=== PATIENT | female | born 1990 | race Caucasian/White ===

== ENCOUNTER 2022-08-13 04:58 | Inpatient (IN) | payer OTHER, SELFPAY ==
[2022-08-13] VITALS (190 sets, daily range): BP systolic 89–152; BP diastolic 38–91; PULSE 63–165; RESP 16–18; TEMP 36.6–37.7; O2SAT 87–100; BMI 33.3
--- NOTE | 2022-08-13 05:33 | LDADM ---
This patient, Yvonne Rock, was admitted to Labor/Delivery/Recovery 105 on 08/13/22 at 04:58. Plans for labor, pain management and were discussed with patient. Patient/family oriented to hospital policies and general routines including ID bracelet, bed and alarms, visiting hours, pain management, procedures, bathroom and other care routines, personal items, smoking policy, room service/diet and guest tray routines, infant security routines, and visiting hours. Patient/Family are encouraged to report perceived risks to care and to ask questions if they do not understand what they are told or what they should do. See OBIX for further documentation.
[2022-08-13 05:53] LABS: Basophils Percent Auto 0.4 % (0.2-1.2); Eosinophils Absolute Auto 0.1 K/mm3 (0-0.3); Hematocrit 32.3 % (37.0-47.0); Hemoglobin 10.7 g/dL (12.0-15.0); Immature Granulocyte Absolute 0.06 K/mm3 (0.00-0.031); Immature Granulocyte Percent A 0.6 % (0-0.5); Lymphocytes Absolute Auto 1.66 K/mm3 (0.9-3.2); Lymphocytes Percent Auto 15.4 % (18.3-44.2); Mean Corpuscular HGB Conc 33.1 g/dl (32-36); Mean Corpuscular Hemoglobin 29.5 pg (26-34); Mean Platelet Volume 11.3 fl (7.4-10.4); Monocytes Absolute Auto 0.5 K/mm3 (0.1-0.6); Monocytes Percent Auto 4.9 % (2.6-8.5); Neutrophils Absolute Auto 8.4 K/mm3 (1.3-6.7); Neutrophils Percent Auto 77.7 % (45.5-73.1); Platelet Count Result 211 k/mm3 (150-375); Red Blood Count 3.63 M/mm3 (4.2-5.4); Red Cell Distribution Width 14.6 % (11.5-14.5); White Blood Count 10.8 K/mm3 (4.5-10.0)
[2022-08-13] MEDS: LACTATED RINGERS 1,000 ML 125 ML IV CONT ×2 (05:55→10:12)
--- NOTE | 2022-08-13 05:56 | PM.IMHP ---
H&P: HPI History of Present Illness Date/Time: 08/13/22 05:56 Chief Complaint: Patient admitted for induction of labor at term Narrative: this is a 32-year-old whose last menstrual period is unknown, EDC is 08/14/2022, confirmed by 10 week ultrasound who presents at 40 weeks gestation for induction of labor. Her has been uncomplicated that she is negative for group B strep. Cervix is favorable risks and benefits reviewed [facility] Family History Family History Grandparent Diabetes mellitus Social History Social History Smoking status: Never smoker Substance use: never Lack of Transportation: No Lack of Food: Never True Current Housing: I Have Housing Concerned About Future Housing: No Difficulty Paying Gas/Electric Bills: No Difficulty Paying for Meds: No Currently Unemployed: No Education: Bachelor's Degree Difficulty w/ Childcare or Family Care: No Spiritual care concerns: No Meds Home Medications and Allergies Home Medications Medication Instructions Recorded Confirmed Type ferrous sulfate 325 mg (65 mg 325 mg PO DAILY 07/24/22 08/13/22 History iron) tablet prenat.vits,alexus,zeb-lcvb-ffmej 1 tablet PO HS 07/24/22 08/13/22 History Allergies Allergy/AdvReac Type Severity Reaction Status Date / Time citalopram [From Celexa] Allergy Hives Verified 08/13/22 05:30 bupropion [From Wellbutrin] AdvReac Dizziness Verified 08/13/22 05:30 Vital Signs Vital Signs - 24 hr 08/13/22 05:32 Oxygen Delivery Room Air Exam Const: General: cooperative, healthy appearing and comfortable Nutritional Appearance: average body habitus Orientation/consciousness: oriented to person, oriented to place and oriented to time HENMT: Head: normal to inspection Resp: Effort & Inspection: normal respiratory effort Cardio: Rate: regular rate Rhythm: regular rhythm Heart sounds: S1 normal heart sound present and S2 normal heart sound present GI: Inspection: normal to inspection ( gravid soft uterus) : External Female Exam: normal external appearance Speculum Exam - Vagina: normal appearance of the vagina Speculum Exam - Cervix: normal appearance of the cervix ( cervix 3/70/2. AROM clear. FHTs reassuring) H&P: Results Labs Labs: Short CBC 08/13/22 Range/Units 05:38 WBC 10.8 H (4.5-10.0) K/mm3 Hgb 10.7 L (12.0-15.0) g/dL Hct 32.3 L (37.0-47.0) % Plt Count 211 (150-375) k/mm3 Assessment and Plan Assessment and plan (1) Term : Code(s): Z34.90 - Encounter for supervision of normal , unspecified, unspecified trimester Status: Acute Plan medical induction of labor. Spontaneous vaginal delivery is expected. She has an epidural candidate
[2022-08-13] MEDS: OXYTOCIN 30 UNITS/NS 500 ML 30 UNITS/500 ML BAG IV CONT (05:58)
--- NOTE | 2022-08-13 09:52 | WPDANESEPPF ---
Anes - Initial Pre Proc Eval Date/Time: 08/13/22 09:52 Surgeon: Román Veliz MD Pre Op Diagnosis: IOL Patient Data Age: 32 Gender: F Height: 1.65 m Weight: 91 kg Last Vital Signs Temp 36.9 C 08/13/22 08:30 Pulse 72 08/13/22 09:46 Resp 16 08/13/22 06:00 BP 135/82 08/13/22 09:46 O2 Del Method Room Air 08/13/22 05:32 Allergies Allergy/AdvReac Type Severity Reaction Status Date / Time citalopram [From Celexa] Allergy Hives Verified 08/13/22 05:30 bupropion [From Wellbutrin] AdvReac Dizziness Verified 08/13/22 05:30 Home Medications Medication Instructions Recorded Confirmed Type ferrous sulfate 325 mg (65 mg 325 mg PO DAILY 07/24/22 08/13/22 History iron) tablet prenat.vits,alexus,kds-ayla-fhfuu 1 tablet PO HS 07/24/22 08/13/22 History Laboratory Tests 08/13/22 05:38 WBC 10.8 H K/mm3 (4.5-10.0) RBC 3.63 L M/mm3 (4.2-5.4) Hgb 10.7 L g/dL (12.0-15.0) Hct 32.3 L % (37.0-47.0) MCV 89.0 fl (80-100) MCH 29.5 pg (26-34) MCHC 33.1 g/dl (32-36) RDW 14.6 H % (11.5-14.5) Plt Count 211 k/mm3 (150-375) MPV 11.3 H fl (7.4-10.4) Immature Gran % (Auto) 0.6 H % (0-0.5) Neut % (Auto) 77.7 H % (45.5-73.1) Lymph % (Auto) 15.4 L % (18.3-44.2) Mercer % (Auto) 4.9 % (2.6-8.5) Eos % (Auto) 1.0 % (0-4.4) Baso % (Auto) 0.4 % (0.2-1.2) Lymph # (Auto) 1.66 K/mm3 (0.9-3.2) Mercer # (Auto) 0.5 K/mm3 (0.1-0.6) Eos # (Auto) 0.1 K/mm3 (0-0.3) Baso # (Auto) 0.0 K/mm3 (0.0-0.1) Abs Immat Gran (auto) 0.06 H K/mm3 (0.00-0.031) Absolute Neuts (auto) 8.4 H K/mm3 (1.3-6.7) Absolute Nucleated RBC 0.0 K/mm3 (0.0-0.012) Nucleated RBC % 0.0 % (0.0-0.2) RPR Pending Blood Type A Negative Antibody Screen Negative Patient hx anesthesia problems: none Family hx anesthesia problems: none Results Review: All pre-operative results and documents have been reviewed as part of the pre-operative evaluation. [facility] Family History Family History Grandparent Diabetes mellitus Social History Social History Smoking status: Never smoker Substance use: never Lack of Transportation: No Lack of Food: Never True Current Housing: I Have Housing Concerned About Future Housing: No Difficulty Paying Gas/Electric Bills: No Difficulty Paying for Meds: No Currently Unemployed: No Education: Bachelor's Degree Difficulty w/ Childcare or Family Care: No Spiritual care concerns: No Anes - Eval Final PreProcedure Day of Procedure 08/13/22 09:52 Patient weight: overweight Heart: regular rate and rhythm Lungs: clear to auscultation and normal air movement Airway: Mallampati scale class II Neurological: alert and oriented Last oral intake: >/= 8 hours ASA classification: II Emergent: no Anesthetic plan: proceed Anesthesia type and monitoring: regional epidural Results Review: All pre-operative results and documents have been reviewed as part of the pre-operative evaluation. Informed Consent: The patient's anesthetic plan and its attendant risks and benefits were discussed with the patient/family/POA. Questions were solicited and answers provided to the satisfaction of the patient/family/POA.
[2022-08-13 10:30] LABS: Rapid Plasma Reagin Non-Reactive (NonReactive)
--- NOTE | 2022-08-13 14:49 | PC.NURSE ---
Spoke with MD on phone, updated that pitocin drip was turned from 10 mu/min to 6 mu/min due to tachysystole. MD agrees with plan of care.
--- NOTE | 2022-08-13 17:52 | P.PCNOB_ITS ---
OB - Delivery Note Procedure Delivery date: 08/13/22 Procedure: mil Events: Elective Induction of Labor Induction method: AROM Delivery augmentation: Pitocin Delivery monitor: External FHT and Internal Uterine Route of delivery: Episiotomy description: None Laceration Description: None Specimen: No Quantitative Blood Loss (ml): 60 Anesthesia type: Epidural Disposition: Floor [place] Baby Date of : 08/13/22 Time of : 17:45 Weeks of gestation at delivery: 39 Infant gender: Female presentation: vertex position: Right Occiput Anterior Placenta delivery description: Spontaneous Cord Vessel Description: 3 Vessels and Delayed Cord Clamping score one minute: 9 score five minutes: 9
[2022-08-13] MEDS: OXYTOCIN 30 UNITS/NS 500 ML 30 UNITS/500 ML BAG 125 UNITS IV CONT (18:06)
[2022-08-13] MEDS: WITCH HAZEL 40 PADS 1 PAD TOPICAL (19:14)
[2022-08-13] MEDS: IBUPROFEN 600 MG TABLET PO (19:15)
[2022-08-13] MEDS: BENZOCAINE 20% AER SPR (*SP) 56 GM CAN 1 SPRAY TOPICAL (19:15)
[2022-08-14 04:12] VITALS: BP 117/64; PULSE 81; RESP 18; TEMP 36.8; O2SAT 100
[2022-08-14 04:38] LABS: Hematocrit 29.4 % (37.0-47.0); Hemoglobin 9.6 g/dL (12.0-15.0)
--- NOTE | 2022-08-14 07:04 | WPDANLDPN2 ---
Anes-Prog Note L&D Date/Time: 08/14/22 07:04 Comfortable throughout: labor and delivery Neuraxial method: epidural Epidural/Spinal procedure site: clean & non-tender Neuro status: Neuro function grossly intact. Cardiovascular status: normal Respiratory status: normal Airway patency: baseline Mental status: baseline Post-Op hydration status: normal Vital Signs: Last Vital Signs Temp 36.8 C 08/14/22 04:12 Pulse 81 08/14/22 04:12 Resp 18 08/14/22 04:12 BP 117/64 08/14/22 04:12 Pulse Ox 100 08/14/22 04:12 O2 Del Method Room Air 08/13/22 23:20 Pain score (VAS): 2 I/O: Intake & Output 08/13/22 08/13/22 08/14/22 15:59 23:59 07:59 Intake Total 1000 Output Total 60 Balance 1000 -60 Patient feedback: Patient satisfied with anesthetic care.
[2022-08-14 08:00] VITALS: BP 122/75; PULSE 73; RESP 16; TEMP 36.7; O2SAT 99
[2022-08-14] MEDS: DOCUSATE SODIUM 100 MG CAPSULE PO ×2 (08:04→16:03)
[2022-08-14] MEDS: POLYSACCHARIDE IRON COMPLEX 150 MG CAPSULE PO ×2 (08:04→16:03)
--- NOTE | 2022-08-14 11:41 | PM.OBPNVD ---
OB - PN: Subj Subjective Date/time seen: 08/14/22 11:41 Narrative: Pain OK. OB - PN: Obj Data Labs 08/14/22 04:05 Labs: Laboratory Results - last 24 hr 08/14/22 04:05 Hgb 9.6 L Hct 29.4 L OB - PN A/P Plan Comments: A: PPD#1, doing well. P: Routine care. Home tomorrow to f/u 6 weeks. Exam Psych: Other: AVSS ABD soft, nontender, fundus firm EXT nontender
--- NOTE | 2022-08-14 11:42 | PM.OBDSVD ---
DS: Admitting Diagnosis Discharge Date 08/15/22 Admitting Diagnosis IUP at 40 weeks DS: Discharge Diagnosis Discharge Diagnosis (1) (normal spontaneous vaginal delivery): Code(s): O80 - Encounter for full-term uncomplicated delivery Status: Acute OB - DS: Summary OB Procedures : None OB Procedures Intrapartum: Spontaneous Vag Delivery OB Procedures: : None Time Spent with Patient Time attestation: Total time spent providing and/or coordinating discharge services: DS: Data Data Completed and Pending Labs on day of discharge: Labs from last 24 hours 08/14/22 04:05 Hgb 9.6 L Hct 29.4 L Discharge Plan Discharge Attending physician on discharge: Román Wallace Discharging Clinician: Aneudy Carpenter Patient Disposition: Home, Self-Care Activity: pelvic rest Diet: regular Discharge Instructions: Education: Mom and Baby Guide Given to: Mother Follow-Up: Call your delivering provider's office for an appointment to be seen in: 6 Weeks Mom and baby should come to the [facility] for the follow-up appointment. Appointment Date/Time: August 17, 2022 at 10:00 am What to expect at your follow-up visit: Blood Pressure Check Physical Assessment Call [phone] if you are unable to keep your appointment time. BREAST CARE: * Wear a snug supportive bra. * For engorgement discomfort: Bottle Feeding: * May apply ice packs PERINEAL CARE: * Until bleeding stops, use your bianca bottle after urinating * Change your pad frequently throughout the day * You may take sitz baths several times a day (fill your bathtub with warm water and soak for 20 minutes.) Do NOT bathe in the water * No tub baths until seen by your physician - You may shower ACTIVITY: * Rest as much as possible. * Do not exercise or lift anything heavier than your baby (such as laundry or other children.) * Avoid stairs or driving as much as possible. * Do not put anything into the vagina. No douching, tampons, or sexual activity until seen by physician. NOTIFY PHYSICIAN IF YOU HAVE ANY QUESTIONS OR IF ANY OF THE FOLLOWING SYMPTOMS OCCUR: * If your vaginal bleeding becomes foul smelling. * If your vaginal bleeding becomes more heavy than a period or if your bleeding changes from pink to bright red. However, you may pass an occasional walnut-sized clot once or twice for the first week . * If you experience a sharp, shooting pain in your calves. * If you discover a hard, reddened area on your breast or if you experience flu-like symptoms. DIET: * Eat regular, well-balanced meals. * Drink plenty of fluids daily. Call or return if temperature above 100.4? F, increased abdominal pain, increased vaginal bleeding or any new problems. Stand Alone Forms: General Discharge Information Follow-up/Referrals: Román Wallace MD [Physician] - 6 Weeks Discharge Medications: New ibuprofen 600 mg tablet 600 mg PO Q6H PRN (Reason: cramps) Qty: 30 0RF Continued ferrous sulfate 325 mg (65 mg iron) Tablet 325 mg PO DAILY prenat.vits,alexus,htd-vojk-bgeji Tablet 1 tablet PO HS Date of admission: 08/13/22 04:58 Primary Care Provider: RobelSu Admitting Provider: Román Wallace Attending physician on admission: Román Wallace Condition: Stable
[2022-08-14 15:55] VITALS: BP 116/77; PULSE 87; RESP 16; TEMP 36.8; O2SAT 99
[2022-08-14 19:30] VITALS: BP 123/66; PULSE 78; RESP 16; TEMP 37.1; O2SAT 100
[2022-08-15] MEDS: POLYSACCHARIDE IRON COMPLEX 150 MG CAPSULE PO (07:37)
[2022-08-15] MEDS: IBUPROFEN 600 MG TABLET PO (07:37)
[2022-08-15] MEDS: DOCUSATE SODIUM 100 MG CAPSULE PO (07:37)
[2022-08-15 07:45] VITALS: BP 125/84; PULSE 84; RESP 16; TEMP 36.8; O2SAT 99
--- NOTE | 2022-08-15 08:00 | PC.NURSE ---
Patient viewed the discharge video Mother & Baby Care, The First Two Weeks . Patient was given the opportunity and encouraged to ask questions. Patient verbalized understanding of information shared and has been given the mother/baby guide for home reference.
--- NOTE | 2022-08-15 09:15 | PM.OBPNVD ---
OB - PN: Subj Subjective Date/time seen: 08/15/22 09:15 Narrative: Pain OK. Would like to go home. OB - PN: Obj Data Labs 08/14/22 04:05 OB - PN A/P Plan Comments: A: PPD#2, doing well. P: Home to f/u 6 weeks. Exam Psych: Other: AVSS ABD soft, nontender, fundus firm EXT nontender
[2022-08-17 10:24] VITALS: BP 130/77; PULSE 74; RESP 16; TEMP 36.8; O2SAT 100
== END 2022-08-15 10:45 | disposition home or self-care (01) | DRG 807 ==
LOC: ANHLDR 05:02 → ANHOB2 20:42
PROVIDERS: Admitting Provider Obstetrics & Gynecology; PCP Internal Medicine; Visit Provider Obstetrics & Gynecology
DX: O80 Encounter for full-term uncomplicated delivery (principal); Z37.0 Single live birth; Z3A.39 39 weeks gestation of pregnancy
CPT/HCPCS: 36415; 85014; 85018; 85025; 86592; 86850; 86900; 86901; A9270; J2590; J2795; J7120

== ENCOUNTER 2022-09-04 09:23 | Emergency (ER) | payer OTHER, SELFPAY ==
--- NOTE | ~2022-09-04 | CT_ITS ---
EXAMINATION: CT brain wo con DATE: 09/04/2022 10:17 INDICATION: Right-sided facial numbness. TECHNIQUE: Computed tomography (CT) of the head was performed without intravenous contrast. The mA wa s adjusted according to patient size. Iterative reconstruction technique was employed. The dose-lengt h product was 605.33 mGy-cm. COMPARISON: None FINDINGS: There is no intracranial hemorrhage, acute infarction, or abnormal intracranial mass lesion . The ventricles are normal in size. The paranasal sinuses are clear. The mastoid air cells are nino l. The orbits are normal. IMPRESSION: 1. Normal brain. Reviewed, dictated and finalized at location A. IMPRESSION: 1. Normal brain.
[2022-09-04 09:35] VITALS: BP 128/87; PULSE 86; RESP 18; O2SAT 99
[2022-09-04 09:40] VITALS: PULSE 80
--- NOTE | 2022-09-04 09:56 | ED.NEUROSD ---
HPI - Neuro Symptoms/Deficit General Chief Complaint: Neuro Symptoms/Deficit Stated Complaint: right sided facial paralysis Time Seen by Provider: 09/04/22 09:43 Source: patient Mode of arrival: ambulatory Limitations: no limitations History of Present Illness HPI Narrative: Patient is a 32-year-old female who presents to the ED with report of paralysis of her right-sided face. Patient reports she first noticed slight numbness and a difference in taste to the right side of her tongue last night. This morning she woke up with weakness in her right-sided face. She states she is unable to open her mouth as widely on that side, unable to close her R eye. She denies any other symptoms. Denies headache, dizziness, lightheadedness, vision changes, weakness of arm or leg, numbness elsewhere, slurred speech, syncope, nausea, vomiting, fevers, rash, pain, recent cough or cold sx's, ear pain. Patient is 3 weeks post normal vaginal delivery. No complications. Related Data Home Medications Medication Instructions Recorded Confirmed prenat.vits,alexus,vbl-bggd-jkxth 1 tablet PO HS 07/24/22 08/13/22 Allergies Allergy/AdvReac Type Severity Reaction Status Date / Time citalopram [From Celexa] Allergy Hives Verified 09/04/22 09:39 bupropion [From Wellbutrin] AdvReac Dizziness Verified 09/04/22 09:39 Review of Systems Review of Systems: CONSTITUTIONAL: Denies fever, chills, or sweats. EYES: See HPI. ENT: See HPI. CARDIOVASCULAR: Denies chest pain. RESPIRATORY: Denies dyspnea. GASTROINTESTINAL: Denies abdominal pain, nausea, vomiting. SKIN: Denies rash or itching. NEUROLOGIC: See HPI. All systems reviewed & are unremarkable except as noted in HPI and below PMFSH Past Medical History Medical History No pertinent past medical history Surgical History Surgical History No pertinent past surgical history Family History Family History Grandparent Diabetes mellitus Social History Social History Smoking status: Never smoker Substance use: never Lack of Transportation: No Lack of Food: Never True Current Housing: I Have Housing Concerned About Future Housing: No Difficulty Paying Gas/Electric Bills: No Difficulty Paying for Meds: No Currently Unemployed: No Education: Bachelor's Degree Difficulty w/ Childcare or Family Care: No Spiritual care concerns: No Exam Narrative: GENERAL: Well appearing, well-nourished, non-toxic, in no acute distress. HEAD: Normocephalic, atraumatic. EYES: PERRL/EOMI, conjunctivae clear bilaterally. No nystagmus. Unable to fully close R eyelid. NOSE: Normal, no drainage. No Sen sign. EARS: TMS clear, with good light reflex. No erythema or bulging. No vesicles noted in canal or TM. THROAT: Pharynx clear, no exudate. MMs moist. NECK: Supple. No adenopathy, no masses. No meningeal signs. RESPIRATORY: Airway patent, respirations nonlabored. Clear to auscultation bilaterally, no rales, rhonchi, wheezing. CARDIOVASCULAR: Regular rate and rhythm without murmurs, rubs, or gallops. Peripheral pulses 2+ and equal bilaterally. MUSCULOSKELETAL: Moves all extremities. Strength/ROM intact without gross deformities. SKIN: Warm, dry, normal color. No rashes. NEURO: A&O X3. Speech clear. Follows commands. CN II-XII intact, aside from isolated facial nerve palsy - slight droop of R eyelid, unable to close eyelid fully, asymmetric smile on R side with slight drooping of corner of mouth, decreased wrinkle of R sided forehead, asymmetric puffing of R cheek. Sensation grossly intact. Steady gait. No ataxic movements. Strength 5/5 in upper and lower extremities bilaterally. Mtur-ee-btld and [id number]-[id number] testing intact bilaterally. No pronator drift. E
[2022-09-04 10:07] LABS: Basophils Percent Auto 0.5 % (0.2-1.2); Eosinophils Absolute Auto 0.1 K/mm3 (0-0.3); Eosinophils Percent Auto 1.2 % (0-4.4); Hemoglobin 12.2 g/dL (12.0-15.0); Immature Granulocyte Absolute 0.02 K/mm3 (0.00-0.031); Immature Granulocyte Percent A 0.3 % (0-0.5); Lymphocytes Absolute Auto 1.31 K/mm3 (0.9-3.2); Lymphocytes Percent Auto 17.6 % (18.3-44.2); Mean Corpuscular HGB Conc 32.1 g/dl (32-36); Mean Corpuscular Hemoglobin 28.2 pg (26-34); Mean Corpuscular Volume 87.8 fl (80-100); Mean Platelet Volume 10.8 fl (7.4-10.4); Monocytes Absolute Auto 0.3 K/mm3 (0.1-0.6); Monocytes Percent Auto 4.6 % (2.6-8.5); Neutrophils Absolute Auto 5.7 K/mm3 (1.3-6.7); Neutrophils Percent Auto 75.8 % (45.5-73.1); Platelet Count Result 276 k/mm3 (150-375); Red Blood Count 4.33 M/mm3 (4.2-5.4); Red Cell Distribution Width 13.7 % (11.5-14.5); White Blood Count 7.5 K/mm3 (4.5-10.0)
[2022-09-04 10:28] LABS: Alanine Aminotransferase 31 U/L (6-35); Albumin Level 4.1 g/dL (3.5-5.1); Alkaline Phosphatase 85 U/L (38-126); Anion Gap 7 mmol/L (8-16); Aspartate Amino Transferase 24 U/L (14-36); Bilirubin,Total 0.6 mg/dL (0.2-1.3); Blood Urea Nitrogen 10 mg/dL (7-17); Calcium 8.7 mg/dL (8.4-10.2); Carbon Dioxide 28 mmol/L (22-30); Chloride 104 mmol/L (98-107); Estimated Glomerular Filt Rate > 60; Glucose 88 mg/dL (65-110); Sodium 139 mmol/L (137-145)
[2022-09-04 10:57] VITALS: BP 114/80; PULSE 66; RESP 14; O2SAT 99
[2022-09-04 11:16] VITALS: TEMP 36.9
--- NOTE | 2022-09-04 11:18 | PC.NURSE ---
pt states Physician gave her the option if she wanted the eye patch or not. pt refused eye patch, states she will get artificial tears to help keep the eye from drying out.
== END 2022-09-04 11:26 | disposition home or self-care (01) ==
PROVIDERS: Emergency Medicine; Emergency Provider Physician Assistant; PCP Internal Medicine
DX: G51.0 Bell's palsy (principal)
CPT/HCPCS: 36415; 70450; 80053; 85025; 99284